=== PATIENT | male | born 2000 | race Caucasian/White ===

== ENCOUNTER 2023-07-31 19:41 | Emergency (ER) | payer BC, SELFPAY ==
[2023-07-31 19:43] VITALS: BP 187/108
--- NOTE | 2023-07-31 19:56 | ED.GENMED ---
History of Present Illness
General
Chief Complaint: Crisis Evaluation
Source: patient
Time Seen by Provider: 07/31/23 19:43
Travel History
Have you had any contact with someone who has COVID-19?: No
Do you have any symptoms of coronavirus? Fever > 100 degrees, chills, cough, shortness of breath, sore throat, loss of taste or smell, muscle aches, or headache?: No
History of Present Illness
History of Present Illness:
23-year-old male presents to the emergency room via ambulance after expressing suicidal ideations. Patient was observed with a firearm. Family was able to take the firearm away from him but the patient was initially resistant to coming to the
hospital. Ultimately he was convinced and presents for psychiatric evaluation. 302 being executed by police I presume. Patient initially not answering any questions but has begun to give short answers to questions. He denies taking any pills or
drinking. He denies any chronic medical conditions or any prescription meds.
Past History
Past History
ED Past Medical History: None
ED Past Surgical History: None
Phy Exam
Physical Exam
Physical Exam:
General: Awake, Alert, Oriented X3. Flat affect
Vitals: unremarkable
Head: Atraumatic
Eyes: Pupils equal, EOMI
Throat: Airway intact, no exudates
Neck: Trachea midline
Lungs: Clear and equal b/l
Heart: Regular rate, no murmurs
Neuro: Nonfocal
Skin: Warm, dry, no rash
Extremities: pulses equal b/l, no edema
Course
Orders/Labs/Results
Orders:
Orders
07/31/23 19:56
Acetaminophen Urgent
Alcohol Urgent
Complete Blood Count/No Diff Urgent
Comprehensive Metabolic Panel Urgent
Salicylate Urgent
Urine Drug Abuse Screen Urgent
Date Specimen was Collected: 07/31/23
Time Specimen was Collected: 19:56
Abnormal Lab Results
07/31/23
19:56
Hgb 18.5 H g/dL
(13.0-18.0)
ALT 67 H U/L
(0-50)
Total Protein 9.0 H g/dl
(6.3-8.2)
Albumin 5.5 H g/dl
(3.5-5.0)
Salicylates < 1.0 L mg/dl
(2.0-20.0)
Acetaminophen < 10 L ug/ml
(10-30)
07/31/23 19:56
07/31/23 19:56
Vital Signs
Initial and Last Documented VS:
Initial Vital Signs
Temp Pulse Resp BP Pulse Ox
98.1 F 105 18 187/108 99
07/31/23 19:43 07/31/23 19:43 07/31/23 19:43 07/31/23 19:43 07/31/23 19:43
Last Documented Vital Signs
Temp Pulse Resp BP Pulse Ox
98.1 F 76 20 187/108 98
07/31/23 19:43 07/31/23 21:02 07/31/23 21:02 07/31/23 19:43 07/31/23 21:05
MDM/Problems Addressed
Differential Diagnosis Includes:
suicidal ideations, ingestion, depression
MDM/Problems Addressed:
Labs unremarkable. No evidence of intoxication. Pt seen by telepsych and admitted to suicidal ideations. Pt medically cleared for psychiatric treatment/hospitalization.
*Pulse Oximetry
Patient hypoxic: no
*Critical Care Note
Total Time (30-74mins, 75-104mins- exclusive of procedures): Not Applicable
ED Attending Note
-
Portions of this chart may have been created with voice recognition software.� Occasional wrong word or��sound alike� substitutions may have occurred due to the inherent limitations of voice recognition software.
Discharge Plan
Departure
Patient Disposition: Psych Facility
Date of Disposition: 07/31/23
Time of Disposition: 21:36
Patient Status:: 302
Discharge Problem:
Suicidal ideation
Prescriptions:
No Action
No Current Medications
0
Interventions
Interventions:
*Risk Screen - Suicide Last Done: 07/31/23 19:43
*General Assessment Last Done: 07/31/23 19:43
*Neglect/Abuse Screening Last Done: 07/31/23 19:43
ED-Psychological Assessment Last Done: 07/31/23 21:05
[2023-07-31 20:05] LABS: Hemoglobin 18.5 g/dL (13.0-18.0); Mean Corp Hgb Conc. 36.3 g/dL (33.0-37.0); Mean Corpuscular Hgb 30.7 pg (27.0-31.0); Mean Corpuscular Volume 84.6 fL (80.0-94.0); Mean Platelet Volume 9.9 fL (7.4-10.4); Platelet Count 243 10^3/uL (130-400); Red Blood Cell Count 6.03 10^6/uL (4.70-6.10); Red Cell Dist. Width 12.1 % (11.5-14.5); White Blood Cell Count 7.9 10^3/uL (4.8-10.8)
[2023-07-31 20:19] LABS: Amphetamines Negative (Negative); Barbiturates Negative (Negative); Benzodiazepines Negative (Negative); Buprenorphine Negative (Negative); Cocaine Negative (Negative); Marijuana Negative (Negative); Methadone Negative (Negative); Methamphetamines Negative (Negative); Opiates Negative (Negative); Phencyclidine Negative (Negative); Tricyclic Antidepressants Negative (Negative)
[2023-07-31 20:25] LABS: Chloride 98 mmol/L (98-107); Potassium 4.1 mmol/L (3.5-5.1); Sodium 138 mmol/L (135-145)
[2023-07-31 20:27] LABS: ALT (SGPT) 67 U/L (0-50); AST (SGOT) 46 U/L (17-59); Acetaminophen < 10 ug/ml (10-30); Albumin 5.5 g/dl (3.5-5.0); Alcohol None Detected; Alkaline Phosphatase 77 U/L (38-126); Blood Urea Nitrogen 14 mg/dl (9-20); Calcium 10.1 mg/dl (8.4-10.2); Carbon Dioxide 28 mmol/L (22-30); Glucose 92 mg/dl (70-99); Salicylate < 1.0 mg/dl (2.0-20.0); Total Bilirubin 0.8 mg/dl (0.2-1.3); eGFR > 60.00
--- NOTE | 2023-08-01 03:31 | DOWNTIME ---
There was a [employer] Client Staff[employer]ist Downtime on 08/01/2023 from 0100 to 08/01/2023 at 0322. Downtime documentation of patient's care, including medication administrations, has been reconciled in the electronic record per guidelines. Refer to the
patient's paper chart under the miscellaneous tab to see printed paper medication records and downtime forms.
== END 2023-08-01 09:20 ==
LOC: EMR 19:41
PROVIDERS: EMERGENCY PHYSICIAN Emergency Medicine
DX: R45.851 Suicidal ideations (principal)
CPT/HCPCS: 99285; 80053; 80143; 80179; 80306; 82077; 85027

== ENCOUNTER → 2024-09-01 09:41 | Outpatient (REF) | payer BC, SELFPAY | LOC: RAD 09:41 | PROVIDERS: ATTENDING PHYSICIAN Chiropractor | DX: Z01.818 Encounter for other preprocedural examination (principal) | CPT/HCPCS: 70030 ==

== ENCOUNTER 2024-09-03 10:51 | Emergency (ER) | payer BC, SELFPAY ==
[2024-09-03 10:59] VITALS: BP 162/97
--- NOTE | 2024-09-03 11:21 | ED.GENMED ---
History of Present Illness
General
Chief Complaint: DVT/Possible Blood Clot
Source: patient
Exam Limitations: none
Time Seen by Provider: 09/03/24 11:15
History of Present Illness
History of Present Illness:
24-year-old male presents with increasing swelling and ecchymosis to left calf. 6 days ago he slipped and hit his leg on a trailer hitch. He developed bruising and swelling and was seen at the urgent care and was ultimately sent here for
evaluation to rule out DVT. He denies chest pain or shortness of breath. He is not anticoagulated. He notes bruising from his mid calf down to his ankle. No other complaints at this time
Past History
Past History
ED Past Medical History: None
ED Past Surgical History: None
Phy Exam
Physical Exam
Physical Exam:
General: Well-appearing male no acute respiratory distress
HEENT: Normocephalic atraumatic
Heart: RRR, no murmurs
Lungs: Clear
Extremities: Left lower extremity swollen ecchymotic and tender from the mid calf down to the ankle. The compartments are soft. Vascular: 2+ DP pulse left foot
Neurologic: Good sensation left foot
Course
Orders/Labs/Results
Orders:
Orders
09/03/24 11:18
Venous Doppler Lwr Ext Left [US Periph Venous LOWER Ext LT] Urgent
Comment:
Reason For Exam: swelling
Vital Signs
Initial and Last Documented VS:
Initial Vital Signs
Temp Pulse Resp Pulse Ox
98.3 F 55 18 99
09/03/24 10:58 09/03/24 10:58 09/03/24 10:58 09/03/24 10:58
Last Documented Vital Signs
Temp Pulse Resp BP Pulse Ox
98.3 F 55 18 162/97 99
09/03/24 10:58 09/03/24 10:58 09/03/24 10:58 09/03/24 10:59 09/03/24 10:58
MDM/Problems Addressed
Differential Diagnosis Includes:
Patient with swelling ecchymosis and discomfort to left leg. Suspect hematoma sent in by urgent care to evaluate for DVT. Ultrasound ordered. No sign of infection or cellulitis
*Critical Care Note
Total Time (30-74mins, 75-104mins- exclusive of procedures): Not Applicable
Update Note
Update Note:
Ultrasound negative for DVT. There is a hematoma noted. No indication for any infectious cause. Recommend elevation and warm compresses. Stable for discharge
ED Attending Note
-
Portions of this chart may have been created with voice recognition software.� Occasional wrong word or��sound alike� substitutions may have occurred due to the inherent limitations of voice recognition software.
Discharge Plan
Departure
Patient Disposition: Home (Routine Discharge)
Date of Disposition: 09/03/24
Time of Disposition: 12:33
Patient with high blood pressure during this ER visit?: No
Discharge Problem:
Hematoma
Prescriptions:
No Action
No Current Medications
0
Referrals:
UNKNOWN - PT DOES,NOT KNOW [Family Provider] -
Activity Restrictions/Additional Instructions:
Elevate for swelling. You may apply warm compresses to the area. Use Tylenol if needed for pain. Return if needed
Interventions
Interventions:
*Risk Screen - Suicide Last Done: 09/03/24 11:19
*Neglect/Abuse Screening Last Done: 09/03/24 11:19
*ED COVID-19 Vaccine History Last Done: 09/03/24 11:19
ED- Cardiac Assessment Last Done: 09/03/24 11:18
ED- Pulmonary Assessment Last Done: 09/03/24 11:18
ED-Skin Assessment Last Done: 09/03/24 11:18
Discharge Date and Time
Print Language: GERMAN
== END 2024-09-03 12:45 | disposition home or self-care (01) ==
LOC: EMR 10:51
PROVIDERS: EMERGENCY PHYSICIAN Emergency Medicine
DX: S80.12XA Contusion of left lower leg, initial encounter (principal); X58.XXXA Exposure to other specified factors, initial encounter; R22.42 Localized swelling, mass and lump, left lower limb
CPT/HCPCS: 99284; 93971